=== PATIENT | female | born 2005 | race Caucasian/White ===

== ENCOUNTER 2025-05-09 08:57 | Outpatient (CLI) | payer MEDICAID, SELFPAY ==
[2025-05-09 09:28] LABS: Ur HCG Qualitative* Negative (Negative)
--- NOTE | 2025-05-09 11:10 | P.ANES_ITS ---
Anesthesia Charges Start Date/Time Anesthesia Start Date: 05/09/25 Anesthesia Start Time: 10:25 Stop Date/Time Anesthesia Stop Date: 05/09/25 Anesthesia Stop Time: 11:02 Coding CPT Codes CPT Codes: ANES UPR LWR GI NDSC PX - 21369 ([id number]) P1 - NORMAL HEALTHY PATIENT, QK - ANIMAL TRAINER SUPERVISOR 2-4 CNCRNT ANES PROC
--- NOTE | 2025-05-09 11:10 | W.ANESCHARGE ---
Anesthesia Charges Start Date/Time Anesthesia Start Date: 05/09/25 Anesthesia Start Time: 10:25 Stop Date/Time Anesthesia Stop Date: 05/09/25 Anesthesia Stop Time: 11:02 Coding CPT Codes CPT Codes: ANES UPR LWR GI NDSC PX - 49243 ([id number]) P1 - NORMAL HEALTHY PATIENT, QK - SEXUAL ASSAULT COUNSELOR 2-4 CNCRNT ANES PROC
--- NOTE | 2025-05-09 11:13 | P.ANES_ITS ---
Anesthesia Charges Start Date/Time Anesthesia Start Date: 05/09/25 Anesthesia Start Time: 10:25 Stop Date/Time Anesthesia Stop Date: 05/09/25 Anesthesia Stop Time: 11:02 Coding CPT Codes CPT Codes: ANES UPR LWR GI NDSC PX - 24640 ([id number]) QK - SENIOR COMPUTER SPECIALIST 2-4 CNCRNT ANES PROC, QX - REPRESENTATIVE PERSONAL SERVICE SVC W/ MED DIRECTION, P1 - NORMAL HEALTHY PATIENT
--- NOTE | 2025-05-09 11:13 | W.ANESCHARGE ---
Anesthesia Charges Start Date/Time Anesthesia Start Date: 05/09/25 Anesthesia Start Time: 10:25 Stop Date/Time Anesthesia Stop Date: 05/09/25 Anesthesia Stop Time: 11:02 Coding CPT Codes CPT Codes: ANES UPR LWR GI NDSC PX - 21510 ([id number]) QK - TRAFFIC MANAGER 2-4 CNCRNT ANES PROC, QX - YARDER OPERATOR SVC W/ MED DIRECTION, P1 - NORMAL HEALTHY PATIENT
== END 2025-05-09 08:58 | disposition home or self-care (01) ==
LOC: OP CLINIC 09:04
PROVIDERS: Visit Provider Internal Medicine Gastroenterology
DX: R10.13 Epigastric pain (principal); R10.32 Left lower quadrant pain; K92.1 Melena; R11.2 Nausea with vomiting, unspecified; K52.9 Noninfective gastroenteritis and colitis, unspecified; Q43.8 Other specified congenital malformations of intestine
CPT/HCPCS: 00813; 43239; 45380; 81025; 88305; J2704; J3490